=== PATIENT | male | born 1945 | race Caucasian/White ===

== ENCOUNTER 2020-08-04 17:17 | Inpatient (IN) | payer OTHER ==
[~2020-08-04] VITALS: Ht 182.9 cm; Wt 90.4 kg
--- NOTE | 2020-08-04 17:30 | NUR ---
PT TRANSFER FROM [facility]. PT C/O ABD STARTED THURSDAY. DX WITH PANCREATIC MASS. 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 PT CONNECTED TO MONITORING. CALL LIGHT IN REACH. FAMILY AT BEDSIDE. MD AT BEDSIDE FOR ASSESSMENT. PT TRANSFERRED FOR ERCP AND FURTHER TESTING. REPORT GIVEN TO DELIA STAUFFER.
--- NOTE | 2020-08-04 17:48 | NUR ---
Received report from Selma STAUFFER. and daughter at bedside, pt resting comfortably. Pt visably jaundice, staes that there is no discomfort. Placed on all monitors, provided a warm blanket for comfort. VSS. BHATT.
--- NOTE | 2020-08-04 18:35 | NUR ---
Pt resting in bed talking with family members at bedside,
--- NOTE | 2020-08-04 18:46 | NUR ---
Report to Barbara STAUFFER
--- NOTE | 2020-08-04 19:18 | NUR ---
pt and family aware of poc and visiting hours. all questions answered, pt comfortable in bed. unable to do med rec at this time, hospitalist has chart and med list.
--- NOTE | 2020-08-04 19:26 | NUR ---
report caren pretty rn
[2020-08-04] MEDS ORDERED: MORPHINE SULFATE 4 MG/ML, 1ML ONE (19:28)
[2020-08-04] MEDS ORDERED: MORPHINE SULFATE 4 MG/ML, 1ML IVPush ONE (19:30)
--- NOTE | 2020-08-04 19:35 | NUR ---
hosp at bedside
[2020-08-04] MEDS ORDERED: DIGO250T12 PO (19:37)
[2020-08-04] MEDS ORDERED: DIGO125T10 PO (19:37)
[2020-08-04] MEDS ORDERED: METO-93 PO (19:44)
[2020-08-04] MEDS ORDERED: MAGN420T PO (19:44)
[2020-08-04] MEDS ORDERED: olodaterol (19:44)
[2020-08-04] MEDS ORDERED: FERR220S16 PO (19:44)
[2020-08-04] MEDS ORDERED: FAMO20TA7 PO (19:44)
[2020-08-04] MEDS ORDERED: TIOT18CA INH (19:57)
[2020-08-04 20:44] VITALS: BP 106/71
[2020-08-04] MEDS ORDERED: LIDODERM 5% PATCH TD PRN (21:00)
[2020-08-04] MEDS ORDERED: DOCUSATE 100 MG CAPSULE PO PRN (21:00)
[2020-08-04] MEDS ORDERED: MELATONIN 5 MG TABLET PO PRN (21:00)
[2020-08-04] MEDS ORDERED: PROMETHAZINE 25 MG/ML, 1ML IM PRN (21:00)
[2020-08-04] MEDS ORDERED: hydrALAzine 20 MG/ML, 1ML IVPush PRN (21:00)
[2020-08-04] MEDS: FAMOTIDINE 20 MG TABLET PO SCH (23:44)
[2020-08-04] MEDS: METOPROLOL SUCCINATE 50 MG TAB.ER.24H PO SCH (23:44)
[2020-08-04] MEDS: morphine SULFATE 10 MG/ML, 1ML IVPush PRN (23:45)
[2020-08-04] MEDS: SODIUM CHLORIDE 0.9% 1,000 ML IV SCH (23:50)
[2020-08-05 00:02] VITALS: BP 117/72
[2020-08-05 04:54] LABS: BASOPHILS % (AUTO) 1 % (0-1); EOSINOPHILS % (AUTO) 2 % (1-7); LYMPHOCYTES % (AUTO) 17 % (22-44); MEAN CORPUSCULAR HEMOGLOBIN 34.7 pg (27.5-34.5); MEAN CORPUSCULAR HGB CONC 34.7 g/dL (33.2-36.2); MEAN PLATELET VOLUME 10.6 fL (7.4-10.4); MONOCYTES % (AUTO) 10 % (2-9); NEUTROPHILS % (AUTO) 71 % (42-75); PLATELET COUNT 146 x10^3/uL (130-400); RED BLOOD COUNT 3.43 x10^6/uL (4.38-5.82); RED CELL DISTRIBUTION WIDTH 17.6 % (9.4-14.8)
[2020-08-05 04:55] LABS: MD NO
[2020-08-05 05:05] LABS: ALANINE AMINOTRANSFERASE 81 U/L (12-78); ALBUMIN 2.6 g/dL (3.4-5.0); ANION GAP 7 mmol/L (5-15); CALCIUM 8.3 mg/dL (8.5-10.1); CHLORIDE 110 mmol/L (98-107)
[2020-08-05 05:21] LABS: ALKALINE PHOSPHATASE 388 U/L (45-117)
[2020-08-05 05:23] LABS: CREATININE 0.94 mg/dL (0.7-1.3); TOTAL PROTEIN 6.2 g/dL (6.4-8.2)
[2020-08-05 05:25] LABS: BILIRUBIN,TOTAL 23.2 mg/dL (0.2-1.0)
[2020-08-05] MEDS: morphine SULFATE 10 MG/ML, 1ML IVPush PRN ×3 (05:36→20:03)
[2020-08-05 06:16] LABS: INTERNATIONAL NORMALIZED RATIO 1.26 (0.93-1.1); PROTHROMBIN TIME 13.4 Seconds (9.6-11.5)
[2020-08-05 08:00] VITALS: BP 104/63
[2020-08-05] MEDS: FERROUS SULFATE 325 MG TABLET PO SCH (09:00)
[2020-08-05] MEDS: MAGNESIUM OXIDE 400 MG TABLET PO SCH (09:00)
[2020-08-05] MEDS: TIOTROPIUM BROMIDE 18 MCG/INH INH SCH (09:00)
[2020-08-05] MEDS: DIGOXIN 0.25 MG TABLET PO SCH (11:50)
[2020-08-05] MEDS: SODIUM CHLORIDE 0.9% 1,000 ML IV SCH (11:51)
[2020-08-05 12:48] VITALS: BP 115/61
[2020-08-05] MEDS ORDERED: GADOTERATE 10 MMOL/20 ML VIAL ONE (17:00)
[2020-08-05 19:38] VITALS: BP 106/71
[2020-08-05] MEDS: FAMOTIDINE 20 MG TABLET PO SCH (20:04)
[2020-08-05] MEDS: METOPROLOL SUCCINATE 50 MG TAB.ER.24H PO SCH (20:04)
[2020-08-06] MEDS: morphine SULFATE 10 MG/ML, 1ML IVPush PRN ×2 (00:54→09:25)
[2020-08-06] MEDS: SODIUM CHLORIDE 0.9% 1,000 ML IV SCH ×2 (00:55→22:58)
[2020-08-06 00:56] VITALS: BP 107/68
[2020-08-06 05:29] LABS: INTERNATIONAL NORMALIZED RATIO 1.33 (0.93-1.1); PROTHROMBIN TIME 14.1 Seconds (9.6-11.5)
[2020-08-06 05:31] LABS: ALBUMIN 2.5 g/dL (3.4-5.0)
[2020-08-06 05:38] LABS: BILIRUBIN,INDIRECT 3.9 mg/dL (0.0-2.0)
[2020-08-06 05:42] LABS: BILIRUBIN, DIRECT 19.6 mg/dL (0.1-0.2); BILIRUBIN,TOTAL 23.5 mg/dL (0.2-1.0)
[2020-08-06 07:08] VITALS: BP 106/68
[2020-08-06] MEDS: TIOTROPIUM BROMIDE 18 MCG/INH INH SCH (09:00)
[2020-08-06] MEDS ORDERED: DIGOXIN 0.25 MG TABLET PO SCH (09:00)
[2020-08-06] MEDS: MAGNESIUM OXIDE 400 MG TABLET PO SCH (09:00)
[2020-08-06] MEDS: FERROUS SULFATE 325 MG TABLET PO SCH (09:00)
[2020-08-06] MEDS: DIGOXIN 0.125 MG TABLET PO SCH (09:00)
[2020-08-06] MEDS ORDERED: CHLORHEXIDINE 15 ML UDC ONE (09:58)
[2020-08-06] MEDS ORDERED: CHLORHEXIDINE 15 ML UDC PO ONE (10:00)
[2020-08-06] MEDS ORDERED: PROPOFOL 50 ML ONE ×2 (10:33→11:18)
[2020-08-06] MEDS ORDERED: OMNIPAQUE 350 MG/ML, 50 ML BOTTLE ONE (10:45)
[2020-08-06] MEDS ORDERED: FENTANYL PF 250 MCG/5ML ONE (10:54)
[2020-08-06] MEDS ORDERED: EPHEDRINE 50 MG/ML, 1ML IVPush PRN (11:00)
[2020-08-06] MEDS ORDERED: DIPHENHYDRAMINE 50 MG/ML, 1ML IVPush PRN (11:00)
[2020-08-06] MEDS ORDERED: LABETALOL 5MG/ML, 20ML IV PRN (11:00)
[2020-08-06] MEDS ORDERED: morphine SULFATE 10 MG/ML, 1ML IVPush PRN (11:00)
[2020-08-06] MEDS ORDERED: FENTANYL PF 100 MCG/2ML IV PRN (11:00)
[2020-08-06] MEDS ORDERED: DIAZEPAM 5 MG/ML, 2ML IVPush PRN (11:00)
[2020-08-06] MEDS ORDERED: EPHEDRINE 50 MG/ML, 1ML IM PRN (11:00)
[2020-08-06] MEDS ORDERED: ONDANSETRON 2MG/ML, 2ML IVPush PRN (11:00)
[2020-08-06] MEDS ORDERED: PROMETHAZINE 25 MG/ML, 1ML IVPush PRN (11:00)
[2020-08-06] MEDS ORDERED: INDOMETHACIN 50 MG SUPP.RECT ONE (12:28)
[2020-08-06] MEDS ORDERED: INDOMETHACIN 50 MG SUPP.RECT PR ONE (12:30)
[2020-08-06] MEDS ORDERED: SODIUM CHLORIDE 0.9%, 500ML IVBOLUS ONE (15:00)
[2020-08-06] MEDS: PANTOPRAZOLE 40 MG IV IVPush SCH ×2 (15:47→22:53)
[2020-08-06 16:26] VITALS: BP 88/54
[2020-08-06 19:24] VITALS: BP 81/52
[2020-08-06] MEDS: METOPROLOL SUCCINATE 50 MG TAB.ER.24H PO SCH (22:53)
[2020-08-06] MEDS: FAMOTIDINE 20 MG TABLET PO SCH (22:53)
[2020-08-07 00:12] VITALS: BP 93/63
[2020-08-07 04:33] VITALS: BP 96/63
[2020-08-07 07:30] VITALS: BP 81/50
[2020-08-07] MEDS: SODIUM CHLORIDE 0.9% 1,000 ML IV SCH ×2 (08:00→22:06)
[2020-08-07] MEDS ORDERED: CHLORHEXIDINE 15 ML UDC ONE (08:34)
[2020-08-07] MEDS ORDERED: FENTANYL PF 100 MCG/2ML ONE (08:53)
[2020-08-07] MEDS ORDERED: OMNIPAQUE 350 MG/ML, 50 ML BOTTLE ONE (08:53)
[2020-08-07] MEDS: MAGNESIUM OXIDE 400 MG TABLET PO SCH (09:00)
[2020-08-07] MEDS: PANTOPRAZOLE 40 MG IV IVPush SCH ×2 (09:00→22:06)
[2020-08-07] MEDS: FERROUS SULFATE 325 MG TABLET PO SCH (09:00)
[2020-08-07] MEDS: TIOTROPIUM BROMIDE 18 MCG/INH INH SCH ×2 (09:00→09:15)
[2020-08-07] MEDS ORDERED: METOCLOPRAMIDE 5 MG/ML, 2ML IVPush PRN (09:30)
[2020-08-07] MEDS ORDERED: ALBUTEROL/IPRATROPIUM 2.5MG/0.5MG, 3 ML NPPB PRN (09:30)
[2020-08-07] MEDS ORDERED: hydrALAzine 20 MG/ML, 1ML IV PRN (09:30)
[2020-08-07] MEDS ORDERED: EPHEDRINE 50 MG/ML, 1ML IVPush PRN (09:30)
[2020-08-07] MEDS ORDERED: DIPHENHYDRAMINE 50 MG/ML, 1ML IVPush PRN (09:30)
[2020-08-07] MEDS ORDERED: FENTANYL PF 100 MCG/2ML IV PRN (09:30)
[2020-08-07] MEDS ORDERED: METOPROLOL 1 MG/ML, 5ML IV PRN (09:30)
[2020-08-07] MEDS ORDERED: OXYcodone 5 MG/5 ML ORAL.SOL UDC PO PRN (09:30)
[2020-08-07] MEDS ORDERED: PROMETHAZINE 25 MG/ML, 1ML IVPush PRN (09:30)
[2020-08-07] MEDS ORDERED: ONDANSETRON 2MG/ML, 2ML IVPush PRN (09:30)
[2020-08-07] MEDS ORDERED: LABETALOL 5MG/ML, 20ML IV PRN (09:30)
[2020-08-07] MEDS ORDERED: HALOPERIDOL 5 MG/ML ONE (11:07)
[2020-08-07] MEDS: HALOPERIDOL 5 MG/ML IV PRN ×2 (11:08→11:14)
[2020-08-07] MEDS ORDERED: PROMETHAZINE 25 MG/ML, 1ML ONE (11:42)
[2020-08-07] MEDS ORDERED: GLUCAGON 1 MG ONE (12:33)
[2020-08-07 13:17] VITALS: BP 116/72
[2020-08-07] MEDS: DIGOXIN 0.25 MG TABLET PO SCH (14:29)
[2020-08-07] MEDS ORDERED: HYDROmorphone 2 MG/ML, 1ML IVPush PRN (14:30)
[2020-08-07] MEDS ORDERED: PHENYLEPHRINE 10 MG/ML ONE (15:55)
[2020-08-07] MEDS ORDERED: SUCCINYLCHOLINE 20 MG/ML, 10ML ONE (15:55)
[2020-08-07] MEDS ORDERED: ROCURONIUM 10MG/ML,5ML ONE (15:55)
[2020-08-07] MEDS ORDERED: ONDANSETRON 2MG/ML, 2ML ONE (15:55)
[2020-08-07 18:56] VITALS: BP 130/80
[2020-08-07] MEDS: FAMOTIDINE 20 MG TABLET PO SCH (22:05)
[2020-08-07] MEDS: METOPROLOL SUCCINATE 50 MG TAB.ER.24H PO SCH (22:05)
[2020-08-07 23:28] VITALS: BP 95/54
[2020-08-08 03:45] VITALS: BP 107/64
[2020-08-08 06:35] VITALS: BP 102/63
[2020-08-08] MEDS: SODIUM CHLORIDE 0.9% 1,000 ML IV SCH (06:48)
[2020-08-08] MEDS: TIOTROPIUM BROMIDE 18 MCG/INH INH SCH (08:39)
[2020-08-08] MEDS: FERROUS SULFATE 325 MG TABLET PO SCH (09:00)
[2020-08-08] MEDS: MAGNESIUM OXIDE 400 MG TABLET PO SCH (09:00)
[2020-08-08] MEDS: DIGOXIN 0.125 MG TABLET PO SCH (09:51)
[2020-08-08] MEDS: PANTOPRAZOLE 40 MG IV IVPush SCH (09:51)
[2020-08-08] MEDS ORDERED: LIDOCAINE 1%, 10ML ONE (12:47)
[2020-08-08] MEDS ORDERED: FENTANYL PF 100 MCG/2ML ONE (13:17)
[2020-08-08] MEDS ORDERED: SUCCINYLCHOLINE 20 MG/ML, 10ML ONE (13:17)
[2020-08-08] MEDS ORDERED: PROPOFOL 10 MG/ML, 20ML ONE (13:17)
[2020-08-08] MEDS ORDERED: ROCURONIUM 10MG/ML,5ML ONE (13:17)
[2020-08-08] MEDS ORDERED: EPHEDRINE 50 MG/ML, 1ML ONE (13:19)
[2020-08-08] MEDS ORDERED: EPHEDRINE 50 MG/ML, 1ML IVPush PRN (14:00)
[2020-08-08] MEDS ORDERED: ONDANSETRON 2MG/ML, 2ML IVPush PRN (14:00)
[2020-08-08] MEDS ORDERED: LABETALOL 5MG/ML, 20ML IV PRN (14:00)
[2020-08-08] MEDS ORDERED: MEPERIDINE/PF 25MG/0.5ML IVPush PRN (14:00)
[2020-08-08] MEDS ORDERED: DIPHENHYDRAMINE 50 MG/ML, 1ML IVPush PRN ×2 (14:00)
[2020-08-08] MEDS ORDERED: PROMETHAZINE 12.5 MG SUPP PR PRN (14:00)
[2020-08-08] MEDS ORDERED: MIDAZOLAM 1 MG/ML, 2ML IV PRN (14:00)
[2020-08-08] MEDS ORDERED: ALBUTEROL SULFATE 2.5 MG/3 ML NPPB PRN (14:00)
[2020-08-08] MEDS ORDERED: hydrALAzine 20 MG/ML, 1ML IV PRN (14:00)
[2020-08-08] MEDS ORDERED: DIAZEPAM 5 MG/ML, 2ML IVPush PRN (14:00)
[2020-08-08] MEDS ORDERED: PROMETHAZINE 25 MG/ML, 1ML IVPush PRN (14:00)
[2020-08-08] MEDS ORDERED: OXYcodone 5 MG/5 ML ORAL.SOL UDC PO PRN (14:00)
[2020-08-08] MEDS ORDERED: HYDROmorphone 1 MG/ML, 1ML INJ IVPush PRN (14:00)
[2020-08-08] MEDS ORDERED: FENTANYL PF 100 MCG/2ML IV PRN (14:00)
[2020-08-08 14:36] VITALS: BP 120/74
== END 2020-08-08 16:44 | disposition hospice, home (50) | DRG 438 ==
LOC: ED 19:05 → EDIP 21:20 → 4NE 21:25 → 4NW 08-08 10:48
PROVIDERS: ADMIT Internal Medicine; ATTEND Family Medicine
PROC: 0FJB8ZZ Inspection of Hepatobiliary Duct, Via Natural or Artificial Opening Endoscopic (ICD-10-PCS; 2020-08-06)
PROC: 0FJD8ZZ Inspection of Pancreatic Duct, Via Natural or Artificial Opening Endoscopic (ICD-10-PCS; 2020-08-06)
PROC: BF141ZZ Fluoroscopy of Gallbladder, Bile Ducts and Pancreatic Ducts using Low Osmolar Contrast (ICD-10-PCS; principal; 2020-08-06 10:30)
PROC: 0FBG8ZX Excision of Pancreas, Via Natural or Artificial Opening Endoscopic, Diagnostic (ICD-10-PCS; 2020-08-07)
PROC: 0F9930Z Drainage of Common Bile Duct with Drainage Device, Percutaneous Approach (ICD-10-PCS; 2020-08-08)
DX: K86.9 Disease of pancreas, unspecified (principal); K83.1 Obstruction of bile duct; K76.6 Portal hypertension; I42.9 Cardiomyopathy, unspecified; I85.10 Secondary esophageal varices without bleeding; K92.0 Hematemesis; R18.8 Other ascites; Z20.822 Contact with and (suspected) exposure to COVID-19; K74.60 Unspecified cirrhosis of liver; E78.5 Hyperlipidemia, unspecified; F10.11 Alcohol abuse, in remission; H91.90 Unspecified hearing loss, unspecified ear; I48.91 Unspecified atrial fibrillation; I50.9 Heart failure, unspecified; J44.9 Chronic obstructive pulmonary disease, unspecified; K22.5 Diverticulum of esophagus, acquired; K70.9 Alcoholic liver disease, unspecified; L29.9 Pruritus, unspecified; Z51.5 Encounter for palliative care; Z79.01 Long term (current) use of anticoagulants; Z80.0 Family history of malignant neoplasm of digestive organs; Z87.19 Personal history of other diseases of the digestive system; Z79.899 Other long term (current) drug therapy; Z79.891 Long term (current) use of opiate analgesic; Z87.891 Personal history of nicotine dependence; Z80.8 Family history of malignant neoplasm of other organs or systems
CPT/HCPCS: 36415; 74328; 76000; 96374; 99285; A9575; J3490; 47534; 74183; 80053; 80076; 80162; 85014; 85018; 85025; 85610; 85730; 86301; 87635; 88172; 88173; 88177; 88307; 93005; 94640; C1894; G0378; J1170; J2405; J2550; J2704; J3010; Q9967; C1729; C1769; C9113; J0330; J1610; J1630; J2270; J2370; J7030; J7040